=== PATIENT | male | born 1955 | race African-American/Black ===

== ENCOUNTER 2018-04-11 12:57 | Inpatient (IN) ==
--- NOTE | 2018-04-11 08:22 | Physician Discharge Referral ---
ExtendedCare Referral Info Transfer To: [facility] Provider in Charge: Dr. Yosvany Torres Expected Duration of Placement: less than 30 days Prognosis: Good Aware of Diagnosis: Patient Aware of Prognosis: Patient - Transfer Medications Home Medications: Aspirin 81 mg PO DAILY 08/22/16 [History] Duloxetine HCl [Cymbalta] 60 mg PO ONCE 03/21/18 [History] Gabapentin [Neurontin] 300 mg PO ONCE 03/21/18 [History] Oxycodone HCl/Acetaminophen [Percocet 5-325 mg Tablet] 1 each PO Q4H PRN [History] Rivaroxaban [Xarelto] 20 mg PO ONCE 03/21/18 [History] Valsartan [Diovan] 320 mg PO ONCE 03/21/18 [History] carBAMazepine [Tegretol] 1.5 tab PO TID 03/21/18 [History] Allergies/Adverse Reactions: 3 Allergy/AdvReac Type Severity Reaction Status Date / Time bupivacaine [From Marcaine] Allergy Chest Pain Verified 03/21/18 13:56 Amoxicillin [From Augmentin] AdvReac Joint Pain Verified 03/21/18 13:56 celecoxib [From Celebrex] AdvReac Nausea Verified 03/21/18 13:56 clavulanic acid AdvReac Chest Pain Verified 03/21/18 13:56 [From Augmentin] clindamycin AdvReac Hives Verified 03/21/18 13:56 fluconazole [From Diflucan] AdvReac Hives Verified 03/21/18 13:56 ketoconazole AdvReac See Verified 03/21/18 13:56 Comments ketorolac [From Toradol] AdvReac See Verified 03/21/18 13:56 Comments lorazepam [From Ativan] AdvReac See Verified 03/21/18 13:56 Comments NSAIDS (Non-Steroidal AdvReac See Verified 03/21/18 13:56 Anti-Inflamma Comments - Respiratory Orders Smoking Cessation: Smoking cessation has been advised. For more information, call the [employer] Tobacco Quit Line at 4-793-FKWN-NOW. - Ancillary Orders May use pressure relief devices daily prn, May go on CORTNEY w/family/respon democrat w /meds at nurse discretion PRN, May consult with Dentist, Wardrobe Attendant, Folder Seamer PRN - Mobility Orders Chair, Ambulate - Rehabiliation Orders Rehab Potential: Good Rehab Orders: Evaluation for Physical Therapy, Evaluation for Occupational Therapy Other: Total Knee replacement Precautions x 6 weeks Apply cold therapy wrap 3-6x/day for 20 minutes at a time. Encourage ambulation throughout the day and incentive spirometer 10x/hour. Elevate affected extremity above heart as tolerated. Brace: Wear knee immobilizer at night x 2 weeks. - Treatments Skin tear care topically daily PRN per policy List/Other: Opsite placed. Keep dressing intact until first follow up appointment. If greater than 50% saturated, notify office, remove dressing and place appropriate dressing back in place. Leave Zipline and porfirio intact. Opsite dressing is water resistant, not water-proof. OK to shower, but do not get dressing wet. - Diet Orders Regular CERTIFICATION: I certify that the transfer of the above named patient to an Extended Care Facility is necessary for the continuing treatment of the diagnosis listed. The above information is true and accurate reflection of patient's current condition. Confidential - Redisclosure prohibited without a patient's written consent.
[2018-04-11] MEDS ORDERED: Ethanol\\Acetic Acid\\Na Ace\\Ben 1,000 ML IRRIG.SOLN IR ONE (13:13)
--- NOTE | 2018-04-11 13:42 | Anesthesia Evaluation PreOp ---
Date of Encounter: 04/11/18 Time of Encounter: 13:40 - Past History Planned Operation: Left Total Knee Arthroscopy Revision Cardiac History: HTN Pulmonary History: Former smoker (quit 1979), Snore, EMANI Dx INTERNET PROGRAMMER History: Other (depression) Other Medical History: Diabetes Type II, Other (Asbestosis, Hx PE, Chronic Back Pain) Anesthesia History: No Prior Anesthetic Complications, Past Anesthesia (IVC filter insertion and removal, L. Total Hip, Left TKR), Problems (Allergic to Marcaine) Alcohol Use: none Drug use: none Medications and Allergies Aspirin 81 mg PO DAILY 08/22/16 [History] Duloxetine HCl [Cymbalta] 60 mg PO ONCE 03/21/18 [History] Gabapentin [Neurontin] 300 mg PO ONCE 03/21/18 [History] Oxycodone HCl/Acetaminophen [Percocet 5-325 mg Tablet] 1 each PO Q4H PRN [History] Rivaroxaban [Xarelto] 20 mg PO ONCE 03/21/18 [History] Valsartan [Diovan] 320 mg PO ONCE 03/21/18 [History] carBAMazepine [Tegretol] 1.5 tab PO TID 03/21/18 [History] 3 Allergy/AdvReac Type Severity Reaction Status Date / Time bupivacaine [From Marcaine] Allergy Chest Pain Verified 03/21/18 13:56 Amoxicillin [From Augmentin] AdvReac Joint Pain Verified 03/21/18 13:56 celecoxib [From Celebrex] AdvReac Nausea Verified 03/21/18 13:56 clavulanic acid AdvReac Chest Pain Verified 03/21/18 13:56 [From Augmentin] clindamycin AdvReac Hives Verified 03/21/18 13:56 fluconazole [From Diflucan] AdvReac Hives Verified 03/21/18 13:56 ketoconazole AdvReac See Verified 03/21/18 13:56 Comments ketorolac [From Toradol] AdvReac See Verified 03/21/18 13:56 Comments lorazepam [From Ativan] AdvReac See Verified 03/21/18 13:56 Comments NSAIDS (Non-Steroidal AdvReac See Verified 03/21/18 13:56 Anti-Inflamma Comments - Meds/Allergy Pre-op Review Medications Reviewed: Yes Allergies Reviewed: Yes Beta Blockers on Current Med List: No Anesthesia Results - Labs Laboratory Tests 03/12/18 03/12/18 03/12/18 09:00 09:00 09:00 WBC 3.9 L Hgb 13.7 Hct 41.3 Plt Count 222 INR 1.1 Sodium 138 Potassium 4.3 Chloride 104 Carbon Dioxide 27 BUN 8 Creatinine 0.77 Echocardiogram Name: Wily Andersen Date of Study: 08/22/2016 Impressions: Technically sub-optimal due to poor echocardiographic windows. Normal LV chamber size, wall thickness, and systolic function. LVEF 55%. Mild left ventricular diastolic dysfunction. Right ventricle was not well visualized. It appears grossly normal in size and function. No significant valvular dysfunction. Unable to estimate RVSP due to lack of TR jet. - Imaging EKG: report reviewed (SINUS RHYTHM INTRAVENTRICULAR CONDUCTION DELAY) Anesthesia Exam O2 Sat Height 1.83 m Height 1.83 m Weight 122.924 kg Weight 122.924 kg O2 Sat by Pulse Oximetry 96 Vital Signs Temp Pulse Resp BP Pulse Ox 98.1 F 81 18 128/78 96 04/11/18 13:18 04/11/18 13:18 04/11/18 13:18 04/11/18 13:18 04/11/18 13:18 NPO (# of Hours): > 8 hrs Pain Scale: 0 Pain Scale Used: Numeric (1 - 10) - HEENT Pupil (Motor): Pupils equal, EOMI Mallampati: III Teeth: Normal Oral Opening: Greater than 3 - INTERNET PROGRAMMER LOC: Oriented INTERNET PROGRAMMER Motor: Normal RUE, Normal LUE, Normal RLE, Normal LLE, Normal Face INTERNET PROGRAMMER Sensory: Normal: RUE, LUE, RLE, LLE, Face - Cardiac Rhythm: Regular Murmur: None JVD: No Carotid Bruit: No - Pulmonary Breath Sounds: bilateral Clear Respiratory Effort: Symmetrical Anesthesia Assess/Plan ASA Score: 3 Modified Mick Scale for Level of Consciousness: Cooperative, oriented, and tranquil Anesthetic Plan: General (NO BLOCK) Autologous Blood: Yes Monitoring Plan: Standard Monitors Recovery Plan: PACU
[2018-04-11] MEDS ORDERED: Albuterol 2.5 MG/3 ML NEBULIZER IH ONE (13:55)
[2018-04-11] MEDS ORDERED: CeFAZolin Syr 3,000MG/30 ML 3,000 MG/30 ML SYRINGE IVPB ONE (13:55)
--- NOTE | 2018-04-11 15:19 | Discharge Summary ---
<Roseanne Belcher - Last Filed: 04/11/18 17:25> Orders not resulted at time of discharge: Pending orders 04/11/18 15:20 XR knee LT limited 1-2V [XR] Routine Hemoglobin and Hematocrit [HEME] Routine Date of Encounter: 04/11/18 - Hospital Course Hospital course: Mr. Andersen is a 62 year old male - Time Spent with Patient Total time spent providing and/or coordinating discharge services: - Discharge Medications Home Medications: Aspirin 81 mg PO DAILY 08/22/16 [History] Duloxetine HCl [Cymbalta] 60 mg PO DAILY 03/21/18 [History] Oxycodone HCl/Acetaminophen [Percocet 5-325 mg Tablet] 1 each PO Q4H PRN [History] Rivaroxaban [Xarelto] 20 mg PO DAILY 03/21/18 [History] carBAMazepine [Tegretol] 200 tab PO TID 03/21/18 [History] Valsartan 320 mg PO HS 04/11/18 [History] Gabapentin [Neurontin] 100 mg PO DAILY 04/12/18 [History] Allergies/Adverse Reactions: 3 Allergy/AdvReac Type Severity Reaction Status Date / Time bupivacaine [From Marcaine] Allergy Chest Pain Verified 03/21/18 13:56 Amoxicillin [From Augmentin] AdvReac Joint Pain Verified 03/21/18 13:56 celecoxib [From Celebrex] AdvReac Nausea Verified 03/21/18 13:56 clavulanic acid AdvReac Chest Pain Verified 03/21/18 13:56 [From Augmentin] clindamycin AdvReac Hives Verified 03/21/18 13:56 fluconazole [From Diflucan] AdvReac Hives Verified 03/21/18 13:56 ketoconazole AdvReac See Verified 03/21/18 13:56 Comments ketorolac [From Toradol] AdvReac See Verified 03/21/18 13:56 Comments lorazepam [From Ativan] AdvReac See Verified 03/21/18 13:56 Comments NSAIDS (Non-Steroidal AdvReac See Verified 03/21/18 13:56 Anti-Inflamma Comments Primary care physician: Wily Borja Jr Labs on day of discharge: Labs from last 24 hours 04/11/18 13:15 POC Glucose 108 H - Patient Status Disposition: Home, Self-Care Condition: Good - Discharge Instructions Follow Up With: Wily Borja Jr, [Primary Care Provider] - <Yosvany Torres - Last Filed: 04/14/18 08:51> Date of Encounter: 04/14/18 Time of Encounter: 08:51 - Discharge Diagnosis (1) Hypertension Priority: Secondary Status: Chronic Qualifiers: Hypertension type: essential hypertension Qualified Code(s): I10 - Essential (primary) hypertension (2) History of pulmonary embolus (PE) Priority: Secondary Status: Chronic (3) EMANI (obstructive sleep apnea) Priority: Secondary Status: Chronic (4) Status post revision of total replacement of left knee Priority: Primary Status: Acute (5) 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 Qualifiers: Encounter type: subsequent encounter Qualified Code(s): T84.038D - Mechanical loosening of other internal prosthetic joint, subsequent encounter; Z96.659 - Presence of unspecified artificial knee joint (6) Type 2 diabetes mellitus Priority: Secondary Status: Chronic Qualifiers: Diabetes mellitus nursing home insulin use: unspecified nursing home insulin use status Diabetes mellitus complication status: with unspecified complications Qualified Code(s): E11.8 - Type 2 diabetes mellitus with unspecified complications (7) Obesity (BMI 35.0-39.9 without comorbidity) Priority: Secondary Status: Chronic (8) Acute blood loss anemia Priority: Primary Status: Acute - Hospital Course Hospital course: Mr. Andersen is a 62 year old male Status post left total knee replacement revision The patient had an uneventful postoperative course. They received antibiotics and physical therapy and were discharged in stable condition. There will follow -up in the office in 2 weeks. - Time Spent with Patient Total time spent providing and/or coordinating discharge services: Primary care physician: Wily Borja Jr Labs on day of discharge: Labs from last 24 hours 04/11/18 13:15 POC Glucose 108 H - Patient Status Functional capacity at discharge: uses cane/walker Overall status at discharge: patient is progressing back to baseline
[2018-04-11] MEDS ORDERED: *HR* Propofol 200 MG/20 ML VIAL IVP ONE (16:03)
[2018-04-11] MEDS ORDERED: Lidocaine -MPF 2% 2 ML VIAL ONE (16:05)
[2018-04-11] MEDS ORDERED: *HR* HYDROmorphone 2 MG/ML SYRINGE ONE (16:08)
[2018-04-11] MEDS ORDERED: Dexmedetomidine HCl 400 MCG/100 ML MLS IVC ONE (16:13)
[2018-04-11] MEDS ORDERED: Acetaminophen IV 1,000 MG/100 ML INFUS..BTL ONE (16:13)
[2018-04-11] MEDS ORDERED: *HR* Midazolam HCl 5 MG/5 ML VIAL IVP ONE (16:19)
[2018-04-11] MEDS ORDERED: *HR* Magnesium Sulfate 1 GM/2 ML VIAL ONE ×2 (16:22→18:21)
--- NOTE | 2018-04-11 16:52 | History & Physical Report ---
Date of Encounter: 04/11/18 Time of Encounter: 16:52 24 Hour HP Update - Instructions Instructions: If the History and Physical is less than 30 days old and was completed prior to A.M. admission and or procedure and has NOT been updated on calendar day of procedure please complete this update prior to performing procedure. - Update Patient reports changes in Medical Condition: No Changes in examination, assessment, or condition: No Changes in Medication: No Preop tests/diagnostics Reviewed: Yes Surgery Remains Indicated: Yes Consent for Planned Operative Procedure(s) Verified: Yes - Pre-Operative Checklist Preoperative Checklist Indicated: No Prophylactic Antibiotic Ordered: Yes Is VTE Prophylaxis Indicated?: Yes
[2018-04-11] MEDS ORDERED: *HR* PHENYLEPHRINE 1,000 MCG/10 ML SYRINGE IVP ONE (17:07)
[2018-04-11] MEDS ORDERED: *HR* OxyCODONE Immed Rel 5 MG TABLET PO PRN ×3 (17:31→21:28)
[2018-04-11] MEDS ORDERED: *HR* Labetalol 20 MG/4 ML SYRINGE IVP PRN (17:31)
[2018-04-11] MEDS ORDERED: *HR* Promethazine 25 MG/ML VIAL IVP PRN (17:31)
[2018-04-11] MEDS ORDERED: *HR* HYDROmorphone (PF) 1 MG/ML SYRINGE IVP PRN (17:31)
[2018-04-11] MEDS ORDERED: Dexamethasone 4 MG/ML VIAL ONE (17:42)
[2018-04-11] MEDS ORDERED: Ondansetron 4 MG/2 ML VIAL ONE (17:42)
[2018-04-11] MEDS ORDERED: EPHEDrine 50 MG/ML VIAL ONE (17:50)
--- NOTE | 2018-04-11 18:45 | Orthopedic Operative Note ---
Date of procedure: 04/11/18 Pre-op diagnosis: Aseptic loosening left total knee Post-op diagnosis: same Procedure: Procedure: Left revision total knee Estimated blood loss: 500 Hardware: Metal and polyethylene replacement. Biomet SSK femur: 75, 22 x 80 stem Tibia: 79, 18 x 80 stem Constrained Jacquelyn: 16, 40 patella Exam Under anesthesia: Loss of full extension 15 degrees of flexion varus valgus instability Procedural Notes: Gross loosening of tibial and femoral components patella malposition Operative procedure: The patient was brought to the operating room and placed on the operating room table. After general anesthesia was administered the operative knee was examined. Findings were noted in the exam under anesthesia. The operative extremity was prepped and draped in sterile surgical fashion. The patient received IV antibiotics prior to skin incision. A standard midline incision was made centered over the patella through the old incision. The incision was made through the skin and subcutaneous tissue. A medial parapatellar tendon approach was performed. Care was taken to preserve tissue along the medial aspect of the patella. And to protect the patella tendon. The deep MCL was released off the medial tibia. The infra patella fat pad was excised. Fluid was encountered this was normal joint fluid, Cultures were obtained and gram . An extensive synovectomy was performed. The knee was brought into flexion the poly-was removed. The interface between the patient's femoral component and distal femur were disrupted with a osteotome and oscillating saw. Femoral component was removed removed without significant bone loss the component was loose. Attention was then turned to the tibial component. The same technique was used to remove the tibial component by disrupting the interface between the patient's tibial component and the patients proximal tibia. The tibial component was loose, was removed without significant bone loss. The patella was everted and transected below the level of the implant. It was sized to a 40 the guide was seated local suture drill. The tibia was sized to a 79 it was reamed up to a 18 x 80 Trial had good fit and fixation. The femur was sized to a 75, was reamed up to a 22 x 80 The finishing guide was seated and the box cut was made. The trial had good fit and fixation. Both trial components were seated and the 16 constrained Jacquelyn was seated and secured. The knee had full flexion and full extension with no instability. Patella had excellent patella tracking. The trial components were removed. The knee sat for 2 minutes with a antibacterial solution. It was irrigated out with 2 L of pulse irrigation. The components were assembled on the back table, the tibia cemented first followed by the femur. The 16 constrained liner was seated and secure. The knee was brought to full extension while the cement hardened. The patella was cemented and held in place with patellar holding clamp. After the cement hardened the knee was irrigated out again with an antibacterial solution followed by pulse irrigation of saline. The extensor mechanism was closed with a running #2 #2 PDS suture. The deep tissue was irrigated and closed deep with #1 PDS suture superficially with 0 PDS suture. The skin was closed with skin porfirio. The patient was placed in a sterile dressing and postoperative brace. They were extubated and transferred to recovery room in stable condition. Anesthesia: GETA Surgeon: Yosvany Torres Was there an physical laboratory assistant present: No Estimated blood loss (cc): 500 Condition: stable Disposition: PACU
[2018-04-11 19:22] LABS: Hematocrit 37.4 % (37.5-50.1); Hemoglobin 12.7 g/dL (12.9-16.9)
[2018-04-11] MEDS: *HR* HYDROmorphone (PF) 1 MG/ML SYRINGE IVP PRN ×5 (19:30→20:10)
[2018-04-11] MEDS: Ringers Solution, Lactated 1,000 ML IVC SCH ×2 (19:49→20:34)
[2018-04-11] MEDS ORDERED: Pregabalin 75 MG CAPSULE PO ONE (19:59)
[2018-04-11] MEDS ORDERED: *HR* Midazolam HCl 2 MG/2 ML VIAL IVP PRN (20:15)
[2018-04-11] MEDS ORDERED: NON-FORMULARY MEDICATION 1 EACH EACH (Rivaroxaban [Xarelto] 20 MG) PO SCH (21:28)
[2018-04-11] MEDS ORDERED: MOM Conc 10 ML UD.LIQ PO PRN (21:28)
[2018-04-11] MEDS ORDERED: Naloxone 0.4 MG/ML INJ IVP PRN (21:28)
[2018-04-11] MEDS ORDERED: Ondansetron 4 MG/2 ML VIAL IVP PRN (21:28)
[2018-04-11] MEDS ORDERED: Temazepam 15 MG CAPSULE PO PRN (21:28)
[2018-04-11] MEDS ORDERED: Sennosides 8.6 MG TABLET PO PRN (21:28)
--- NOTE | 2018-04-11 22:27 | Anesthesia Evaluation Post Op ---
Date of Encounter: 04/11/18 Time of Encounter: 21:00 - Vital Signs Vital Signs: Vital Signs/O2 Sat/Glucose, Most Current Temp Pulse Resp BP Pulse Ox 04/11/18 21:10 80 16 101/59 98 04/11/18 21:00 98.2 F 76 16 101/66 96 04/11/18 20:50 77 12 104/59 98 04/11/18 20:40 78 12 104/64 98 04/11/18 20:30 97.4 F L 80 12 106/61 98 04/11/18 20:20 79 14 89/59 97 04/11/18 20:10 75 16 76/51 98 04/11/18 19:50 97.3 F L 78 20 93/58 95 04/11/18 19:40 84 16 70/40 96 04/11/18 19:30 76 18 83/60 96 04/11/18 19:20 97.6 F 75 14 77/44 96 04/11/18 19:10 78 18 82/44 94 04/11/18 19:00 79 18 85/45 95 04/11/18 18:50 97.4 F L 85 14 113/52 96 - Lungs Lungs: Clear Ascult./Percussion - Airway Airway: Non-obstructed - Cardiovascular Regular Rate - Mental Status Mental Status: Alert & Oriented, Answers Appropriately - Pain Pain Scale: 5 Pain Scale used: Numeric (1 - 10) - Nausea Vomiting Nausea Vomiting: Not Present - Hydration Hydration: Ice chips, Has not voided - Discharge PostOp Status: Transfer Patient to floor Anes Supervising Prov Stmt: Pt seen/evaluated, VSS And pt has met criteria for discharge to home. - MD Deidre
[2018-04-11] MEDS: Gabapentin 300 MG CAPSULE PO SCH (22:53)
[2018-04-11] MEDS: *HR* OxyCODONE Immed Rel 15 MG TABLET PO PRN (22:54)
[2018-04-12] MEDS: *HR* HYDROmorphone 2 MG/ML SYRINGE IVP PRN ×4 (00:43→23:11)
[2018-04-12] MEDS: *HR* OxyCODONE Immed Rel 15 MG TABLET PO PRN ×3 (03:55→19:35)
[2018-04-12 04:21] LABS: Hematocrit 36.7 % (37.5-50.1)
[2018-04-12 04:36] LABS: BUN/Creatinine Ratio 14 (6-26); Blood Urea Nitrogen 17 mg/dL (8-23); Calcium 8.5 mg/dL (8.6-10.3); Carbon Dioxide 26 mEq/L (23-29); Chloride 100 mEq/L (98-107); Glucose 203 mg/dL (70-105); Osmolality,Calculated 283 (280-300); Potassium 5.3 mEq/L (3.5-5.1); Sodium 133 mEq/L (136-145); eGFR For African Americans > 60 (> 60); eGFR For Non-African Americans > 60 (> 60)
[2018-04-12] MEDS ORDERED: *HR* Dextrose 50 % in Water (Syg) 50 ML SYRINGE IVP PRN (06:23)
[2018-04-12] MEDS ORDERED: Dextrose Gel 15 GM/37.5 ML TUBE PO PRN ×2 (06:23)
[2018-04-12] MEDS ORDERED: D5% in Water 1,000 ML IVC PRN (06:23)
--- NOTE | 2018-04-12 06:34 | Orthopedics Progress Note ---
Date of Encounter: 04/12/18 Time of Encounter: 06:34 - Assessment and Plan (1) Hypertension Current Visit: No Status: Chronic Qualifiers: Hypertension type: essential hypertension Qualified Code(s): I10 - Essential (primary) hypertension (2) History of pulmonary embolus (PE) Current Visit: No Status: Chronic (3) EMANI (obstructive sleep apnea) Current Visit: No Status: Chronic (4) Status post revision of total replacement of left knee Current Visit: No Status: Acute (5) Loosening of knee joint prosthesis Current Visit: No Status: Chronic Qualifiers: Encounter type: subsequent encounter Qualified Code(s): T84.038D - Mechanical loosening of other internal prosthetic joint, subsequent encounter; Z96.659 - Presence of unspecified artificial knee joint (6) Type 2 diabetes mellitus Current Visit: No Status: Chronic Qualifiers: Diabetes mellitus longterm insulin use: unspecified termite technician insulin use status Diabetes mellitus complication status: with unspecified complications Qualified Code(s): E11.8 - Type 2 diabetes mellitus with unspecified complications (7) Obesity (BMI 35.0-39.9 without comorbidity) Current Visit: No Status: Chronic Subjective Interval history: Patient was seen this morning doing well without complaints. Afebrile vital signs stable. Operative extremity: Neurovascularly intact Dressing clean dry and intact Calves nontender Assessment and plan: Continue with postoperative care Objective Vital signs: Vital Signs Temp Pulse Resp BP Pulse Ox 04/12/18 04:02 97.6 F 86 16 103/68 93 04/12/18 00:48 97.6 F 87 16 102/69 99 04/11/18 23:56 97.6 F 90 15 119/80 100 04/11/18 22:33 97.5 F L 84 15 108/75 98 04/11/18 21:55 97.5 F L 83 16 100/65 97 04/11/18 21:25 97.8 F 81 16 104/70 96 04/11/18 21:10 80 16 101/59 98 04/11/18 21:00 98.2 F 76 16 101/66 96 04/11/18 20:50 77 12 104/59 98 04/11/18 20:40 78 12 104/64 98 04/11/18 20:30 97.4 F L 80 12 106/61 98 04/11/18 20:20 79 14 89/59 97 04/11/18 20:10 75 16 76/51 98 04/11/18 19:50 97.3 F L 78 20 93/58 95 04/11/18 19:40 84 16 70/40 96 04/11/18 19:30 76 18 83/60 96 04/11/18 19:20 97.6 F 75 14 77/44 96 04/11/18 19:10 78 18 82/44 94 04/11/18 19:00 79 18 85/45 95 04/11/18 18:50 97.4 F L 85 14 113/52 96 04/11/18 14:25 98.1 F 81 18 128/78 96 04/11/18 13:18 98.1 F 81 18 128/78 96 Intake and Output 04/11/18 04/11/18 04/12/18 15:59 23:59 07:59 Intake Total 1000 / 1000 30 / 30 Output Total 500 / 500 250 / 250 Balance 500 / 500 -220 / -220 Intake: IV Fluids 1000 / 1000 30 / 30 Lactated Ringers 1,000 ML @ 25 1000 / 1000 mls/hr IVC .Q24H [facility] Rx#: [id number] Ancef Syringe 3,000 MG/30 ML 3, 30 / 30 000 mg In 30 ml @ 200 mls/hr IVPB Q8H [facility] Rx#:[id number] Output: Urine 250 / 250 Estimated Blood Loss 500 / 500 Other: Weight 122.924 kg Blood Glucose* 108 195 - Labs CBC & BMP: 04/12/18 04:00 04/12/18 04:00 Labs: Abnormal lab results Hgb 12.0 g/dL (12.9-16.9) L 04/12/18 04:00 Hct 36.7 % (37.5-50.1) L 04/12/18 04:00 Sodium 133 mEq/L (136-145) L 04/12/18 04:00 Potassium 5.3 mEq/L (3.5-5.1) H 04/12/18 04:00 Glucose 203 mg/dL (70-105) H 04/12/18 04:00 POC Glucose 108 mg/dL (70-99) H 04/11/18 13:15 Calcium 8.5 mg/dL (8.6-10.3) L 04/12/18 04:00 - VTE Documentation of Mechanical Device: Intermittent pneumatic compression device Consult Discharge Plan - Plan Referrals: Wily Borja Jr, DO [Primary Care Provider] -
[2018-04-12] MEDS: CeFAZolin Syr 3,000MG/30 ML 3,000 MG/30 ML SYRINGE IVPB SCH ×2 (07:48)
[2018-04-12] MEDS: Aspirin 81 MG TAB.CHEW PO SCH (07:48)
[2018-04-12] MEDS: Insulin LISPRO 300 UNITS/3 ML VIAL SQ SCH ×4 (07:49→21:52)
[2018-04-12] MEDS ORDERED: *HR* Rivaroxaban 10 MG TABLET PO SCH (09:00)
[2018-04-12] MEDS: carBAMazepine 200 MG TABLET PO SCH ×3 (11:17→23:11)
[2018-04-12] MEDS: Ringers Solution, Lactated 1,000 ML IVC SCH ×3 (14:09→23:19)
[2018-04-12] MEDS: Valsartan 160 MG TABLET PO SCH (19:48)
[2018-04-12] MEDS ORDERED: Gabapentin 300 MG CAPSULE PO SCH (21:30)
[2018-04-12] MEDS: Gabapentin 300 MG CAPSULE PO SCH (21:53)
[2018-04-13] MEDS: *HR* OxyCODONE Immed Rel 15 MG TABLET PO PRN ×3 (04:21→20:42)
[2018-04-13 04:49] LABS: Hematocrit 29.2 % (37.5-50.1)
[2018-04-13 04:57] LABS: Hemoglobin 9.7 g/dL (12.9-16.9)
[2018-04-13 05:13] LABS: BUN/Creatinine Ratio 26 (6-26); Blood Urea Nitrogen 31 mg/dL (8-23); Calcium 8.3 mg/dL (8.6-10.3); Carbon Dioxide 29 mEq/L (23-29); Chloride 98 mEq/L (98-107); Glucose 148 mg/dL (70-105); Osmolality,Calculated 279 (280-300); Potassium 4.5 mEq/L (3.5-5.1); Sodium 130 mEq/L (136-145); eGFR For African Americans > 60 (> 60); eGFR For Non-African Americans > 60 (> 60)
--- NOTE | 2018-04-13 06:45 | Orthopedics Progress Note ---
Date of Encounter: 04/13/18 Time of Encounter: 06:44 - Assessment and Plan (1) Hypertension Current Visit: No Status: Chronic Qualifiers: Hypertension type: essential hypertension Qualified Code(s): I10 - Essential (primary) hypertension (2) History of pulmonary embolus (PE) Current Visit: No Status: Chronic (3) EMANI (obstructive sleep apnea) Current Visit: No Status: Chronic (4) Status post revision of total replacement of left knee Current Visit: No Status: Acute (5) Loosening of knee joint prosthesis Current Visit: No Status: Chronic Qualifiers: Encounter type: subsequent encounter Qualified Code(s): T84.038D - Mechanical loosening of other internal prosthetic joint, subsequent encounter; Z96.659 - Presence of unspecified artificial knee joint (6) Type 2 diabetes mellitus Current Visit: No Status: Chronic Qualifiers: Diabetes mellitus residential insulin use: unspecified residential insulin use status Diabetes mellitus complication status: with unspecified complications Qualified Code(s): E11.8 - Type 2 diabetes mellitus with unspecified complications (7) Obesity (BMI 35.0-39.9 without comorbidity) Current Visit: No Status: Chronic Subjective Interval history: Patient was seen this morning doing well without complaints. Afebrile vital signs stable. Operative extremity: Neurovascularly intact Dressing clean dry and intact Calves nontender Assessment and plan: Continue with postoperative care hemoglobin 9.7 possible discharge today if cleared by physical therapy Objective Vital signs: Vital Signs Temp Pulse Resp BP Pulse Ox 04/13/18 06:42 98.0 F 88 17 114/70 95 04/12/18 23:16 97.8 F 84 18 112/70 93 04/12/18 22:00 98.0 F 88 17 114/70 95 04/12/18 19:15 97.9 F 88 18 109/66 94 04/12/18 15:50 98.4 F 87 17 92/58 90 04/12/18 11:04 97.7 F 87 18 97/62 96 04/12/18 08:08 93 04/12/18 07:46 103/65 Intake and Output 04/12/18 04/12/18 04/13/18 15:59 23:59 07:59 Intake Total 540 / 540 1000 / 1000 Output Total 300 / 300 700 / 700 Balance 540 / 540 700 / 700 -700 / -700 Intake: IV Fluids 1000 / 1000 Lactated Ringers 1,000 ML @ 75 1000 / 1000 mls/hr IVC .[id number] [facility] Rx#: [id number] Oral 540 / 540 Output: Urine 300 / 300 700 / 700 Other: Meal Lunch Percent of Meal Consumed 80% Blood Glucose* 160 146 141 - Labs CBC & BMP: 04/13/18 04:00 04/13/18 04:00 Labs: Abnormal lab results Hgb 9.7 g/dL (12.9-16.9) L D 04/13/18 04:00 Hct 29.2 % (37.5-50.1) L 04/13/18 04:00 Sodium 130 mEq/L (136-145) L 04/13/18 04:00 BUN 31 mg/dL (8-23) H 04/13/18 04:00 Glucose 148 mg/dL (70-105) H 04/13/18 04:00 POC Glucose 146 mg/dL (70-99) H 04/12/18 19:56 Calculated Osmolality 279 (280-300) L 04/13/18 04:00 Calcium 8.3 mg/dL (8.6-10.3) L 04/13/18 04:00 - VTE Documentation of Mechanical Device: Intermittent pneumatic compression device Consult Discharge Plan - Plan Referrals: Wily Borja Jr, [Primary Care Provider] -
[2018-04-13] MEDS: Aspirin 81 MG TAB.CHEW PO SCH (07:29)
[2018-04-13] MEDS: Gabapentin 100 MG CAPSULE PO SCH (07:29)
[2018-04-13] MEDS: carBAMazepine 200 MG TABLET PO SCH ×3 (07:29→20:42)
[2018-04-13] MEDS: Insulin LISPRO 300 UNITS/3 ML VIAL SQ SCH ×4 (07:30→20:42)
[2018-04-13] MEDS: *HR* HYDROmorphone 2 MG/ML SYRINGE IVP PRN ×2 (07:30→12:06)
[2018-04-13] MEDS: *HR* Rivaroxaban 10 MG TABLET PO SCH ×2 (07:49→17:25)
[2018-04-13] MEDS: Ringers Solution, Lactated 1,000 ML IVC SCH (16:17)
[2018-04-13 18:15] LABS: Hemoglobin 9.4 g/dL (12.9-16.9)
[2018-04-13 18:32] LABS: BUN/Creatinine Ratio 25 (6-26); Blood Urea Nitrogen 29 mg/dL (8-23); Calcium 8.3 mg/dL (8.6-10.3); Carbon Dioxide 27 mEq/L (23-29); Chloride 99 mEq/L (98-107); Glucose 157 mg/dL (70-105); Magnesium 2.3 mg/dL (1.6-2.6); Osmolality,Calculated 281 (280-300); Potassium 4.4 mEq/L (3.5-5.1); Sodium 131 mEq/L (136-145); eGFR For African Americans > 60 (> 60); eGFR For Non-African Americans > 60 (> 60)
[2018-04-13] MEDS: Valsartan 160 MG TABLET PO SCH (20:42)
[2018-04-14] MEDS: *HR* OxyCODONE Immed Rel 15 MG TABLET PO PRN ×2 (04:22→09:01)
[2018-04-14 04:47] LABS: Basophils % 0.1 %; Eosinophils # 0.3 K/mcL (0.0-0.6); Eosinophils % 4.5 %; Hematocrit 26.3 % (37.5-50.1); Hemoglobin 8.7 g/dL (12.9-16.9); Immature Granulocytes % 0.3 % (0-4); Lymphocytes # 1.2 K/mcL (0.6-4.6); Mean Corpuscular HGB Conc 33.1 g/dL (31.6-35.5); Mean Corpuscular Hemoglobin 30.1 pg (28.0-33.3); Mean Platelet Volume 9.2 fL (9.4-12.4); Monocytes # 0.9 K/mcL (0.0-1.3); Monocytes % 11.9 %; Neutrophils # 5.1 K/mcL (1.6-8.9); Platelet Count 138 K/mcL (140-400); Red Blood Count 2.89 M/mcL (4.19-5.50); Red Cell Distribution Width 12.7 % (11.5-14.5); Segmented Neutrophils % 67.2 %
[2018-04-14 05:05] LABS: BUN/Creatinine Ratio 26 (6-26); Blood Urea Nitrogen 23 mg/dL (8-23); Calcium 8.5 mg/dL (8.6-10.3); Carbon Dioxide 28 mEq/L (23-29); Chloride 102 mEq/L (98-107); Glucose 149 mg/dL (70-105); Osmolality,Calculated 286 (280-300); Sodium 135 mEq/L (136-145); eGFR For African Americans > 60 (> 60); eGFR For Non-African Americans > 60 (> 60)
[2018-04-14] MEDS: Insulin LISPRO 300 UNITS/3 ML VIAL SQ SCH (07:42)
--- NOTE | 2018-04-14 08:52 | Orthopedics Progress Note ---
Date of Encounter: 04/14/18 Time of Encounter: 08:52 - Assessment and Plan (1) Hypertension Current Visit: No Status: Chronic Qualifiers: Hypertension type: essential hypertension Qualified Code(s): I10 - Essential (primary) hypertension (2) History of pulmonary embolus (PE) Current Visit: No Status: Chronic (3) EMANI (obstructive sleep apnea) Current Visit: No Status: Chronic (4) Status post revision of total replacement of left knee Current Visit: No Status: Acute (5) Loosening of knee joint prosthesis Current Visit: No Status: Chronic Qualifiers: Encounter type: subsequent encounter Qualified Code(s): T84.038D - Mechanical loosening of other internal prosthetic joint, subsequent encounter; Z96.659 - Presence of unspecified artificial knee joint (6) Type 2 diabetes mellitus Current Visit: No Status: Chronic Qualifiers: Diabetes mellitus group home insulin use: unspecified group home insulin use status Diabetes mellitus complication status: with unspecified complications Qualified Code(s): E11.8 - Type 2 diabetes mellitus with unspecified complications (7) Obesity (BMI 35.0-39.9 without comorbidity) Current Visit: No Status: Chronic (8) Acute blood loss anemia Current Visit: Yes Status: Acute Subjective Interval history: Patient was seen this morning doing well without complaints. Afebrile vital signs stable. Operative extremity: Neurovascularly intact Dressing clean dry and intact Calves nontender Assessment and plan: Continue with postoperative care hemoglobin 8.7 possible discharge today Objective Vital signs: Vital Signs Temp Pulse Resp BP Pulse Ox 04/14/18 07:11 97.9 F 88 16 119/69 94 04/14/18 05:03 98.1 F 91 16 110/64 92 04/14/18 01:19 98.1 F 89 16 102/64 96 04/13/18 19:23 98.3 F 93 18 105/66 95 04/13/18 17:23 98.3 F 98 99/66 04/13/18 15:36 97.6 F 98 174 138/69 92 04/13/18 11:43 98.2 F 92 18 98/62 92 Intake and Output 04/13/18 04/14/18 04/14/18 23:59 07:59 15:59 Intake Total 120 / 120 Output Total 950 / 950 1525 / 1525 Balance -830 / -830 -1525 / -1525 Intake: Oral 120 / 120 Output: Urine 950 / 950 1525 / 1525 Other: Meal Lunch Percent of Meal Consumed 75% Weight 133.8 kg Blood Glucose* 142 133 Patient Weight 04/14/18 23:59 Weight 133.8 kg - Labs CBC & BMP: 04/14/18 04:00 04/14/18 04:00 Labs: Abnormal lab results RBC 2.89 M/mcL (4.19-5.50) L 04/14/18 04:00 Hgb 8.7 g/dL (12.9-16.9) L 04/14/18 04:00 Hct 26.3 % (37.5-50.1) L 04/14/18 04:00 Plt Count 138 K/mcL (140-400) L 04/14/18 04:00 MPV 9.2 fL (9.4-12.4) L 04/14/18 04:00 Sodium 135 mEq/L (136-145) L 04/14/18 04:00 Glucose 149 mg/dL (70-105) H 04/14/18 04:00 POC Glucose 142 mg/dL (70-99) H 04/13/18 19:21 Calcium 8.5 mg/dL (8.6-10.3) L 04/14/18 04:00 - VTE Documentation of Mechanical Device: Intermittent pneumatic compression device Consult Discharge Plan - Plan Referrals: Wily Borja Jr, [Primary Care Provider] -
[2018-04-14] MEDS: Aspirin 81 MG TAB.CHEW PO SCH (09:02)
[2018-04-14] MEDS: Gabapentin 100 MG CAPSULE PO SCH (09:02)
[2018-04-14] MEDS: carBAMazepine 200 MG TABLET PO SCH (09:02)
[2018-04-14 11:37] VITALS: BP 122/76
== END 2018-04-14 13:10 | disposition home or self-care (01) | DRG 467 ==
LOC: SAMDAY 12:57 → 3NENU 21:24
PROVIDERS: ADMIT Orthopaedic Surgery; ATTEND Orthopaedic Surgery